=== PATIENT | female | born 1955 | race Caucasian/White ===

== ENCOUNTER 2018-06-04 10:16 | Emergency (ER) | payer MEDICAID, MEDICARE, OTHER ==
[2018-06-04 10:22] VITALS: BP 151/70
--- NOTE | 2018-06-04 10:59 | UC ---
UC General HPI - HPI Summary HPI Summary: The patient is a 63-year-old female that presents here with mild left facial numbness and droop as well as increased weakness of her left arm and finger numbness. That she has a very complicated history. She has a history of MS which has left her wheelchair bound for years. She has a history of pulmonary embolism. 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 She thinks this was due to over anticoagulation. - History of Current Complaint Chief Complaint: UCGeneralIllness Stated Complaint: NUMBNESS IN FACE AND LEFT SIDE Time Seen by Provider: 06/04/18 10:38 Hx Obtained From: Patient Hx Last Menstrual Period: n/a Onset/Duration: Sudden Onset, Lasting Days - 2 Timing: Constant Onset Severity: Mild Current Severity: Mild Pain Intensity: 0 Pain Location at: no pain Associated Signs & Symptoms: Positive: Cough - slight, Headache - mild frontal, Weakness - left face and left arrm. Negative: Agitation, Abdominal Pain, Anticoagulation Therapy, Back Pain, Confusion, Chest Pain, Decreased Responsiveness, Dizziness, Diarrhea, Dysuria, Decreased Oral Intake, Diaphoresis , Edema, Fever, Hematemesis, Hemoptysis, Immunocompromised, In-Dwelling Medication Device, Melena, Nausea, Palpitations, Recent Medication Changes, Syncope, SOB, Trauma, Vomiting, Wheezing - Allergy/Home Medications Allergies/Adverse Reactions: Allergies Allergy/AdvReac Type Severity Reaction Status Date / Time acetaminophen Allergy Unknown Verified 06/04/18 10:27 [From Darvocet-N] Reaction Details adhesive Allergy Unknown Verified 06/04/18 10:27 Reaction Details albuterol Allergy Unknown Verified 06/04/18 10:27 Reaction Details carbamazepine Allergy Unknown Verified 06/04/18 10:27 Reaction Details ciprofloxacin [From Cipro] Allergy Unknown Verified 06/04/18 10:27 Reaction Details Hydantoins Allergy Unknown Verified 06/04/18 10:27 Reaction Details meperidine [From Demerol] Allergy Unknown Verified 06/04/18 10:27 Reaction Details oxybutynin [From Ditropan] Allergy Unknown Verified 06/04/18 10:27 Reaction Details phenytoin Allergy Unknown Verified 06/04/18 10:27 Reaction Details procainamide Allergy Unknown Verified 06/04/18 10:27 Reaction Details propoxyphene Allergy Unknown Verified 06/04/18 10:27 [From Darvocet-N] Reaction Details propranolol Allergy Unknown Verified 06/04/18 10:27 Reaction Details quinidine Allergy Unknown Verified 06/04/18 10:27 Reaction Details Sulfa (Sulfonamide Allergy Unknown Verified 06/04/18 10:27 Antibiotics) Reaction Details tolbutamide Allergy Unknown Verified 06/04/18 10:27 Reaction Details warfarin [From Coumadin] Allergy Unknown Verified 06/04/18 10:27 Reaction Details Home Medications: Home Medications Aspirin EC TAB* [Ecotrin EC Low Dose 81 MG*] 1 tab DAILY 06/04/18 [History Confirmed 06/04/18] Atorvastatin* [Lipitor 10 MG*] 10 mg BEDTIME 06/04/18 [History Confirmed ] Baclofen TAB* [Lioresal TAB*] 1 tab BID 06/04/18 [History Confirmed 06/04/18] Cetirizine* [ZyrTEC 10 MG TAB*] 10 mg PO DAILY 06/04/18 [History Confirmed 06/04] Furosemide TAB* [Lasix TAB*] 20 mg PO QPM 06/04/18 [History Confirmed 06/04/18] Furosemide TAB* [Lasix TAB*] 40 mg PO DAILY 06/04/18 [History Confirmed 06/04/18 ] Levothyroxine TAB* [Synthroid 150 MCG TAB*] 1 tab QAM 06/04/18 [History Confirmed 06/04/18] Omeprazole 40 mg PO DAILY 06/04/18 [History Confirmed 06/04/18] PHENobarbital TAB(*) 97.2 mg BEDTIME 06/04/18 [History Confirmed 06/04/18] Potassium Chlor TAB* [Klor Con ER TAB*] 10 meq PO DAILY 06/04/18 [History Confirmed 06/04/18] Sertraline* [Zoloft*] 100 mg PO DAILY 06/04/18 [History Confirmed 06/04/18] tiZANidine TAB* [Zanaflex TAB*] 4 mg PO BEDTIME 06/04/18 [History Confirmed ] PMH/Surg Hx/FS Hx/Imm Hx Previously Healthy: No - MS Endocrine History: Dyslipidemia Cardiovascular History: Hypertension Respiratory History: Other - hypoxemia/home O2 at night GI/ History: Gastroesophageal Reflux, Other Other GI/ History: suprapubic catheter/frequent UTIs Neurological History: CVA - Surgical History Surgical History: Yes Surgery Procedure, Year, and Place: gall stones, hystectomy, right hip with pin , bladder x 3 - Family History Known Family History: Positive: Hypertension, Diabetes - Social History Alcohol Use: None Substance Use Type: None Smoking Status (MU): Former Smoker When Did the Patient Quit Smoking/Using Tobacco: one year Review of Systems All Other Systems Reviewed And Are Negative: Yes Constitutional: Positive: Negative Skin: Positive: Negative Eyes: Positive: Negative ENT: Positive: Negative Respiratory: Positive: Negative Cardiovascular: Positive: Negative Gastrointestinal: Positive: Negative Genitourinary: Positive: Negative Motor: Positive: Weakness - increased weakness left arm Neurovascular: Positive: Negative Musculoskeletal: Positive: Negative Neurological: Positive: Headache - mild frontal, Numbness - left face and left hand Psychological: Positive: Negative Physical Exam Triage Information Reviewed: Yes Appearance: Well-Appearing, No Pain Distress, Well-Nourished Vital Signs: Initial Vital Signs Temp 97.2 F 06/04/18 10:18 Pulse 65 06/04/18 10:18 Resp 16 06/04/18 10:18 BP 151/70 06/04/18 10:18 Pulse Ox 98 06/04/18 10:18 Vital Signs Reviewed: Yes Eyes: Positive: Conjunctiva Clear, Other: - EOMI/PERRL ENT: Positive: Uvula midline. Negative: Nasal congestion, Nasal drainage, Trismus, Muffled voice, Hoarse voice Neck: Positive: Supple, Nontender, Other: - no carotid bruits Respiratory: Positive: Lungs clear, Normal breath sounds, No respiratory distress, No accessory muscle use Cardiovascular: Positive: RRR, No Murmur Abdomen Description: Positive: Other: - suprapubic catheter Musculoskeletal: Positive: ROM Intact, No Edema Neurological: Positive: Alert, Other: - left hemiparesis/slight left facial droop Psychological Exam: Normal Skin Exam: Normal Diagnostics - EKG Cardiac Rate: NL Cardiac Rhythm: Sinus: Normal Ectopy: None ST Segment: Non-Specific - flipped T's lat leads... no old EKG Course/Dx - Course Course Of Treatment: [id number]. I suggested we send the patient to [facility] ER. She refuses transfer. She will agree to go to [facility] ER. ER called. I spoke to Theresa Simmons DIRECTOR OF ORTHOPEDICS. To ER via POV - Diagnoses Provider Diagnosis: Numbness and tingling of left side of face, Left arm weakness Discharge - Sign-Out/Discharge Documenting (check all that apply): Patient Departure All imaging exams completed and their final reports reviewed: No Studies - Discharge Plan Condition: Stable Disposition: HOME-RECOMMEND TO ED Referrals: Helen Ledesma MD [Primary Care Provider] - Additional Instructions: I suggest you go to the ER for evaluation of your symptoms I spoke to Theresa Beckwith DIRECTOR OF ORTHOPEDICS - Billing Disposition and Condition Condition: STABLE Disposition: Home-Recommend to ED
== END 2018-06-04 11:04 | disposition home health service (06) ==
LOC: UCCORT 10:16
DX: R20.0 Anesthesia of skin (principal); M62.81 Muscle weakness (generalized); G35 Multiple sclerosis; Z99.3 Dependence on wheelchair; Z86.73 Personal history of transient ischemic attack (TIA), and cerebral infarction without residual deficits; Z88.6 Allergy status to analgesic agent; Z88.8 Allergy status to other drugs, medicaments and biological substances; Z88.1 Allergy status to other antibiotic agents; I10 Essential (primary) hypertension; E78.5 Hyperlipidemia, unspecified; K21.9 Gastro-esophageal reflux disease without esophagitis; Z87.891 Personal history of nicotine dependence
CPT/HCPCS: 93005; 99212; G0463